=== PATIENT | male | born 1935 | race Caucasian/White ===

== ENCOUNTER 2018-09-19 15:04 | Outpatient (CLI) | payer MEDICARE, OTHER ==
[2018-09-19] MEDS ORDERED: MULT-658 PO (16:11)
[2018-09-19] MEDS ORDERED: keppra PO (16:11)
[2018-09-19] MEDS ORDERED: cozaar PO (16:11)
[2018-09-19] MEDS ORDERED: CALC-126 PO (16:11)
[2018-09-19] MEDS ORDERED: zetia PO (16:11)
[2018-09-19] MEDS ORDERED: ASCO500C2 PO (16:11)
[2018-09-19] MEDS ORDERED: MV-M1TAB16 PO (16:11)
[2018-09-19 16:46] LABS: BASOPHILS # (AUTO) 0.02 x10^3/uL (0-0.1); BASOPHILS % (AUTO) 0 % (0-1); EOSINOPHILS # (AUTO) 0.17 x10^3/uL (0-0.4); EOSINOPHILS % (AUTO) 3 % (1-7); LYMPHOCYTES # (AUTO) 0.99 x10^3/uL (1-3.4); LYMPHOCYTES % (AUTO) 18 % (22-44); MD NO; MEAN CORPUSCULAR HGB CONC 32.6 g/dL (33.2-36.2); MEAN CORPUSCULAR VOLUME 98.3 fL (81-97); MEAN PLATELET VOLUME 8.9 fL (7.4-10.4); MONOCYTES # (AUTO) 0.56 x10^3/uL (0.2-0.8); MONOCYTES % (AUTO) 10 % (2-9); NEUTROPHILS # (AUTO) 3.82 x10^3/uL (1.8-6.8); NEUTROPHILS % (AUTO) 69 % (42-75); PLATELET COUNT 201 x10^3/uL (130-400); RED CELL DISTRIBUTION WIDTH 14.2 % (9.4-14.8)
[2018-09-19 16:47] LABS: MICROSCOPIC NOT IND
[2018-09-19 16:51] LABS: ALBUMIN 3.5 g/dL (3.4-5.0); ANION GAP 7 mmol/L (5-15); CALCIUM 8.5 mg/dL (8.5-10.1); CHLORIDE 108 mmol/L (98-107)
[2018-09-19 16:54] LABS: ALANINE AMINOTRANSFERASE 24 U/L (12-78); ALKALINE PHOSPHATASE 72 U/L (45-117); BILIRUBIN,TOTAL 0.9 mg/dL (0.2-1.0); CREATININE 0.95 mg/dL (0.7-1.3)
== END 2018-09-19 23:59 | disposition home or self-care (01) ==
LOC: STAR 15:04
PROVIDERS: ATTEND Urology
DX: Z01.818 Encounter for other preprocedural examination (principal); N43.3 Hydrocele, unspecified; R94.31 Abnormal electrocardiogram [ECG] [EKG]
CPT/HCPCS: 36415; 80053; 81003; 85025; 87086; 93005

== ENCOUNTER 2018-09-24 09:43 | Day surgery (SDC) | payer MEDICARE, OTHER ==
[~2018-09-24] VITALS: Ht 172.7 cm; Wt 114.0 kg
[~2018-09-24 09:43] MED LIST: ASCO500C2 PO; BUPIVACAINE/PF 0.25% ONE; CALC-126 PO; MULT-658 PO; MV-M1TAB16 PO; cozaar PO; keppra PO; zetia PO
[2018-09-24] MEDS ORDERED: LACTATED RINGERS 1,000 ML IV SCH (10:09)
[2018-09-24] MEDS ORDERED: AMOX-291 PO (10:12)
[2018-09-24] MEDS ORDERED: ACETAMINOPHEN 500 MG TABLET PO ONE (10:30)
[2018-09-24] MEDS ORDERED: GABAPENTIN 300 MG CAPSULE PO ONE (10:30)
[2018-09-24 10:37] VITALS: BP 139/85
[2018-09-24] MEDS ORDERED: DIPHENHYDRAMINE 50 MG/ML, 1ML IVPush PRN (11:00)
[2018-09-24] MEDS ORDERED: OXYcodone 5 MG/5 ML ORAL.SOL UDC PO PRN (11:00)
[2018-09-24] MEDS ORDERED: FENTANYL PF 100 MCG/2ML IV PRN (11:00)
[2018-09-24] MEDS ORDERED: LABETALOL 5MG/ML, 20ML IV PRN (11:00)
[2018-09-24] MEDS ORDERED: hydrALAzine 20 MG/ML, 1ML IV PRN (11:00)
[2018-09-24] MEDS ORDERED: PROMETHAZINE 25 MG/ML, 1ML IV PRN (11:00)
[2018-09-24] MEDS ORDERED: HYDROmorphone 2 MG/ML, 1ML IVPush PRN (11:00)
[2018-09-24] MEDS ORDERED: HALOPERIDOL 5 MG/ML IV PRN ×2 (11:00)
[2018-09-24] MEDS ORDERED: MEPERIDINE/PF 25MG/0.5ML IVPush PRN (11:00)
[2018-09-24] MEDS ORDERED: METOPROLOL 1 MG/ML, 5ML IV PRN (11:00)
[2018-09-24] MEDS ORDERED: PROCHLORPERAZINE 5 MG/ML, 2ML IV PRN (11:00)
[2018-09-24] MEDS ORDERED: CEFAZOLIN 1,000 MG ONE (11:41)
[2018-09-24] MEDS ORDERED: DEXAMETHASONE 4 MG/ML, 1ML ONE (11:41)
[2018-09-24] MEDS ORDERED: PROPOFOL 10 MG/ML, 20ML ONE (11:41)
[2018-09-24] MEDS ORDERED: ONDANSETRON 2MG/ML, 2ML ONE (11:41)
[2018-09-24] MEDS ORDERED: SUCCINYLCHOLINE 20 MG/ML, 10ML ONE (11:41)
[2018-09-24] MEDS ORDERED: FENTANYL PF 100 MCG/2ML ONE (11:59)
[2018-09-24] MEDS ORDERED: OXYcodone 5 MG/5 ML ORAL.SOL UDC ONE (12:50)
== END 2018-09-24 16:15 | disposition home or self-care (01) ==
LOC: OR 09:43
PROVIDERS: ATTEND Urology
DX: N43.3 Hydrocele, unspecified (principal); I10 Essential (primary) hypertension; E78.5 Hyperlipidemia, unspecified; G47.33 Obstructive sleep apnea (adult) (pediatric); E11.9 Type 2 diabetes mellitus without complications; K21.9 Gastro-esophageal reflux disease without esophagitis; R56.9 Unspecified convulsions; Z72.89 Other problems related to lifestyle; Z79.891 Long term (current) use of opiate analgesic; Z79.899 Other long term (current) drug therapy; Z87.891 Personal history of nicotine dependence; Z90.79 Acquired absence of other genital organ(s); Z90.49 Acquired absence of other specified parts of digestive tract; Z98.890 Other specified postprocedural states
CPT/HCPCS: 55040; J3010; J3490; J7120; J0690; J1100; J2405; J2704; J0330